=== PATIENT | female | born 1955 | race Caucasian/White ===

== ENCOUNTER → 2021-02-02 07:00 | Outpatient (CLI) | payer MEDICARE, OTHER, SELFPAY ==
[2021-02-02 09:06] LABS: Add Manual Diff / Slide Review NO; Basophils Absolute Auto 0 /uL (0-100); Basophils Percent Auto 0.5 % (0-2); Eosinophils Absolute Auto 100 /uL (0-450); Eosinophils Percent Auto 1.1 % (2-4); Hematocrit 38.8 % (36-46); Hemoglobin 12.9 g/dL (12.0-16.0); Lymphocytes Absolute Auto 1500 /uL (1100-4500); Lymphocytes Percent Auto 22.7 % (25-40); Mean Corpuscular HGB Conc 33.2 % (30-36); Mean Corpuscular Hemoglobin 29.9 PG (26-34); Mean Corpuscular Volume 90.2 fL (80-100); Monocytes Absolute Auto 500 /uL (0-900); Monocytes Percent Auto 8.1 % (3-14); Neutrophils Absolute Auto 4300 /uL (1500-7000); Neutrophils Percent Auto 67.6 % (50-75); Platelet Count 230 X10^3/uL (150-400); White Blood Cell Count 6.4 X10^3/uL (4.5-11.0)
[2021-02-02 09:48] LABS: Alanine Aminotransferase 19 IU/L (<35); Albumin 4.2 g/dL (3.5-5.0); Albumin Globulin Ratio 1.7 (1.0-2.8); Alkaline Phosphatase 72 U/L (38-126); Aspartate Aminotransferase 25 IU/L (14-36); Bilirubin Total 0.3 mg/dL (0.2-1.3); Blood Urea Nitrogen 13 mg/dL (7-17); Calcium 9.1 mg/dL (8.4-10.2); Carbon Dioxide 31 mmol/L (22-32); Chloride 102 mmol/L (98-107); Cholesterol 213 mg/dL (140-199); Estimated Glomerular Filt Rate > 60.0 mL/min (>60); Globulin 2.5 g/dL (1.7-4.1); Glucose 95 mg/dL (80-110); HDL Cholesterol 60 mg/dL (40-60); HEMOLYSIS < 15 (0-50); LDL Cholesterol Calculated 134 mg/dL (<100); Potassium 4.6 mmol/L (3.4-5.1); Sodium 140 mmol/L (137-145); Total Protein 6.7 g/dL (6.3-8.2); Triglycerides 95 mg/dL (35-150)
[2021-02-02 09:58] LABS: Vitamin D 25 Hydroxy (D3) 64.6 ng/mL (30.0-100.0)
== END ==
PROVIDERS: PCP Student in an Organized Health Care Education/Training Program; Referring Provider Student in an Organized Health Care Education/Training Program; Visit Provider Student in an Organized Health Care Education/Training Program
DX: E55.9 Vitamin D deficiency, unspecified (principal); Z79.899 Other long term (current) drug therapy; Z13.220 Encounter for screening for lipoid disorders
CPT/HCPCS: 36415; 80053; 80061; 82306; 85025

== ENCOUNTER → 2021-02-11 09:53 | Outpatient (CLI) | payer MEDICARE, OTHER, SELFPAY | PROVIDERS: PCP Student in an Organized Health Care Education/Training Program; Referring Provider Student in an Organized Health Care Education/Training Program; Visit Provider Student in an Organized Health Care Education/Training Program | DX: Z78.0 Asymptomatic menopausal state (principal); Z13.820 Encounter for screening for osteoporosis; M85.851 Other specified disorders of bone density and structure, right thigh | CPT/HCPCS: 77080 ==

== ENCOUNTER → 2021-03-21 08:39 | Outpatient (CLI) | payer MEDICARE, OTHER, SELFPAY ==
--- NOTE | 2021-03-21 08:41 | DI.MG.S_ITS ---
BILATERAL DIGITAL SCREENING MAMMOGRAM 3D/2D WITH CAD: 03/21/2021 CLINICAL: Routine screening. Comparison is made to exams dated: 10/03/2018 mammogram and 08/26/2018 mammogram - outside facility. The tissue of both breasts is predominantly fatty. Current study was also evaluated with a Computer Aided Detection (CAD) system. There are benign calcifications in the right breast. No significant masses, calcifications, or other findings are seen in either breast. There has been no significant interval change. IMPRESSION: BENIGN There is no mammographic evidence of malignancy. A 1 year screening mammogram is recommended. This exam was interpreted at Station ID: [id number]. NOTE: For mammograms, a report in lay terms will be sent to the patient. Approximately 15% of breast malignancies will not be visualized mammographically. In the management of a palpable breast mass, a negative mammogram must not discourage biopsy of a clinically suspicious lesion. Electronically Signed By: Kaleb Winston acr/rolf:03/21/2021 10:17:37 letter sent: Normal Exam ACR BI-RADS Category 2: Benign Finding(s) 3342F
== END ==
PROVIDERS: PCP Student in an Organized Health Care Education/Training Program; Referring Provider Student in an Organized Health Care Education/Training Program; Visit Provider Student in an Organized Health Care Education/Training Program
DX: Z12.31 Encounter for screening mammogram for malignant neoplasm of breast (principal)
CPT/HCPCS: 77063; 77067

== ENCOUNTER → 2021-04-26 09:40 | Outpatient (CLI) | payer MEDICARE, OTHER, SELFPAY ==
--- NOTE | 2021-04-26 | DI.MRI.S_ITS ---
PROCEDURE: MR LUMBAR SPINE WO CON INDICATIONS: Low back pain, unspecified TECHNIQUE: Noncontrast sagittal T1 spin echo and T2 fast echo, sagittal STIR, axial T1 and T2 fast spin echo through the lumbar spine. In cases with scoliosis, additional coronal T2 fast spin echo may be performed. COMPARISON: [facility] [place], CR, XR LUMBAR SPINE WITH OBLIQUES PLUS FLEXION EXTENSION, 04/14/2021, 11:38. FINDINGS: Image quality: Excellent. Alignment and Curvature: S-shaped scoliotic curvature is seen. Bone Marrow: Marrow is of normal overall signal. No acute vertebral body compression fractures. Spinal Cord: Conus medullaris terminates at the L1 level. Visualized cord demonstrates normal signal and size. Paraspinous Soft Tissues: No paravertebral masses. Age-appropriate lower thoracic spine degenerative changes are seen. T12-L1: No significant abnormality is seen. L1-L2: Normal appearance. L2-L3: Moderate loss of disc height is seen on the left. Loss of disc signal is seen. Mild to moderate disc bulge is seen, which is eccentric to the left. There is a superimposed central disc protrusion. There is moderate left-sided and no significant right-sided neural foraminal narrowing. Moderate central canal narrowing is seen. L3-L4: Dykr-uu-lamsuugf loss of disc height and disc signal can be seen. Mild to moderate disc bulge is seen, with a central disc protrusion. There is moderate to severe right-sided and at least moderate left-sided neural foraminal narrowing. There is a degree of compression seen upon the exiting nerve roots. Moderate to severe central canal narrowing is seen. L4-L5: Moderate to severe loss of disc height and disc signal can be seen on the right side. Reactive marrow endplate changes are seen, which demonstrate mixed T1 weighted and T2-weighted signal, and are attributed to a combination of edema and fatty metaplasia (Modic type I and Modic type II changes). Moderate disc bulge is seen, which is eccentric to the right. There is a superimposed central disc protrusion. At least moderate facet hypertrophy is seen at this level. There is moderate to severe right-sided and at least moderate left-sided neural foraminal narrowing. There is a degree of compression seen upon the exiting right L4 nerve root. Moderate to severe central canal narrowing is seen, as on series 5, image 23. L5-S1: Hwel-ws-welavbjg loss of disc height and disc signal can be seen. Moderate generalized disc bulge is seen. There is a superimposed central disc protrusion. At least moderate facet hypertrophy is seen. There is at least moderate left-sided neural foraminal narrowing, with a mild degree of compression upon the exiting left L5 nerve root. Mild right-sided neural foraminal narrowing is seen. Mild to moderate central canal narrowing is seen. IMPRESSION: Multiple levels of relatively prominent lumbar spine degenerative change are seen, which are overall worst at L3-L4 and L4-L5. Several sites of significant neural foraminal narrowing can be seen, with associated exiting nerve root compression. Dictated by: Cristobal Casey M.D. on 04/26/2021 at 10:02 Approved by: Cristobal Casey M.D. on 04/26/2021 at 10:06
== END ==
PROVIDERS: PCP Student in an Organized Health Care Education/Training Program; Referring Provider Physical Medicine & Rehabilitation; Visit Provider Physical Medicine & Rehabilitation
DX: M54.50 Low back pain, unspecified (principal); M51.36 Other intervertebral disc degeneration, lumbar region; M48.061 Spinal stenosis, lumbar region without neurogenic claudication
CPT/HCPCS: 72148

== ENCOUNTER → 2021-08-03 08:09 | Outpatient (CLI) | payer MEDICARE, OTHER, SELFPAY ==
--- NOTE | 2021-08-03 08:13 | DI.RAD.S_ITS ---
PROCEDURE: XR NASAL BONES MIN 3V INDICATIONS: Nose pain TECHNIQUE: 3 views of the nasal bones acquired. COMPARISON: None. FINDINGS: Bones: No fractures or dislocations. Nasal septum is midline. Normal nasociliary nerve grooves are noted. Soft tissues: No suspicious soft tissue calcifications. IMPRESSION: No displaced nasal bone fractures. Dictated by: Samreen Esteves MD, PhD on 08/03/2021 at 10:29 Approved by: Samreen Esteves MD, PhD on 08/03/2021 at 10:30
--- NOTE | 2021-08-03 08:13 | DI.RAD.S_ITS ---
PROCEDURE: XR RIBS RT MIN 3V W CXR 1V INDICATIONS: fall TECHNIQUE: To views of the right ribs were acquired, along with a single view chest. COMPARISON: None. FINDINGS: Surgical changes and devices: None. Bones and chest wall: Mildly displaced anterior right 9th rib fracture. No suspicious bony lesions. Overlying soft tissues appear unremarkable. Lungs and pleura: No pleural effusions or pneumothorax. Streaky opacities noted in the lung bases which could represent parenchymal scarring or atelectasis. Mediastinum: Mediastinal contours appear normal. Heart size is normal. IMPRESSION: Mildly displaced anterior right 9th rib fracture. No acute cardiopulmonary disease process. Dictated by: Samreen Esteves MD, PhD on 08/03/2021 at 10:30 Approved by: Samreen Esteves MD, PhD on 08/03/2021 at 10:31
== END ==
PROVIDERS: PCP Student in an Organized Health Care Education/Training Program; Referring Provider Nurse Practitioner Family; Visit Provider Nurse Practitioner Family
DX: S09.92XA Unspecified injury of nose, initial encounter (principal); S22.31XA Fracture of one rib, right side, initial encounter for closed fracture; R07.81 Pleurodynia; X58.XXXA Exposure to other specified factors, initial encounter
CPT/HCPCS: 70160; 71101

== ENCOUNTER → 2022-03-22 11:25 | Outpatient (CLI) | payer MEDICARE, OTHER, SELFPAY ==
--- NOTE | 2022-03-22 11:27 | DI.MG.S_ITS ---
BILATERAL DIGITAL SCREENING MAMMOGRAM 3D/2D WITH CAD: 03/22/2022 CLINICAL: Routine screening. Comparison is made to exams dated: 03/21/2021 mammogram - [facility], 10/03/2018 mammogram, and 08/26/2018 mammogram - outside facility. Both breasts are almost entirely fatty (category a/<25% glandular tissue). Current study was also evaluated with a Computer Aided Detection (CAD) system. There are benign calcifications in both breasts. No significant masses, calcifications, or other findings are seen in either breast. There has been no significant interval change. IMPRESSION: BENIGN There is no mammographic evidence of malignancy. A 1 year screening mammogram is recommended. Based on the Tyrer Cuzick model (a risk assessment model) the patient's lifetime risk is 5.6% and her 10 year risk is 2.8%. According to the ACR, ACS, and NCCN guidelines, an annual breast MRI exam along with mammogram is recommended if the patient's lifetime risk is 20% or greater. This exam was interpreted at Station ID: [id number]. NOTE: For mammograms, a report in lay terms will be sent to the patient. Approximately 15% of breast malignancies will not be visualized mammographically. In the management of a palpable breast mass, a negative mammogram must not discourage biopsy of a clinically suspicious lesion. Electronically Signed By: Kaleb avalos/rolf:03/22/2022 15:05:48 letter sent: Normal Exam ACR BI-RADS Category 2: Benign Finding(s) 3342F
--- NOTE | 2022-03-22 11:27 | DI.CT.S_ITS ---
PROCEDURE: CT CHEST WO CON INDICATIONS: ROUTINE SCREEN;Personal history of nicotine depend TECHNIQUE: Noncontrast 5 mm thick sections acquired from the pulmonary apices to the posterior costophrenic angles. 1 mm lung window, 5 mm thick coronal and sagittal and 7 mm axial MIP reformats were then acquired. For radiation dose reduction, the following was used: automated exposure control, adjustment of mA and/or kV according to patient size. COMPARISON: None. FINDINGS: Image quality: Excellent. Lungs and pleura: No acute air space opacities. No pleural effusions or pneumothorax. Central and peripheral airways are patent and normal in caliber. Mediastinum: Heart size is normal. No pericardial effusion. No mediastinal adenopathy by size criteria. Thoracic aorta and central pulmonary arteries are normal in size. Scattered atheromatous calcifications are present within the aortic arch. Esophagus is normal in caliber. No hiatal hernia. Bones and chest wall: No suspicious bony lesions. No vertebral body compression fractures. No axillary or supraclavicular adenopathy by size criteria. Thyroid gland is unremarkable. Abdomen: Visualized upper abdominal solid organs and bowel loops appear normal in the absence of contrast. IMPRESSION: No acute airspace opacities. No suspicious pulmonary nodules or mass lesions. Lung rads 1: If clinically indicated, annual CT surveillance is recommended. Dictated by: Ethel Garcia M.D. on 03/22/2022 at 15:53 Approved by: Ethel Garcia M.D. on 03/22/2022 at 15:59
== END ==
PROVIDERS: PCP Student in an Organized Health Care Education/Training Program; Referring Provider Student in an Organized Health Care Education/Training Program; Visit Provider Student in an Organized Health Care Education/Training Program
DX: Z12.31 Encounter for screening mammogram for malignant neoplasm of breast (principal); Z87.891 Personal history of nicotine dependence; Z13.83 Encounter for screening for respiratory disorder NEC
CPT/HCPCS: 71250; 77063; 77067

== ENCOUNTER → 2023-02-20 10:29 | Outpatient (CLI) | payer MEDICARE, OTHER, SELFPAY ==
--- NOTE | 2023-02-20 | DI.RAD.S_ITS ---
PROCEDURE: XR FOOT RT MIN 3V INDICATIONS: Other hammer toe(s) (acquired), unspecified foot TECHNIQUE: 3 views of the foot were acquired. COMPARISON: [facility], , FOOT 3V RIGHT, 01/24/2010, 14:02. FINDINGS: Bones: No fractures or dislocations. No suspicious bony lesions. Mild metatarsus adductus and hallux valgus. Hammertoe deformity. Mild degenerative joint disease in ankle and foot. Osteopenia. Soft tissues: No tibiotalar joint effusion. Achilles tendon appears normal. IMPRESSION: 1. No acute osseous abnormalities. 2. Mild degenerative joint disease. Dictated by: Faizan Booker M.D. on 02/20/2023 at 13:29 Approved by: Faizan Booker M.D. on 02/20/2023 at 13:31
== END ==
PROVIDERS: PCP Registered Nurse; Referring Provider Podiatrist Foot & Ankle Surgery; Visit Provider Podiatrist Foot & Ankle Surgery
DX: M20.41 Other hammer toe(s) (acquired), right foot (principal); M19.071 Primary osteoarthritis, right ankle and foot; M20.11 Hallux valgus (acquired), right foot
CPT/HCPCS: 73630

== ENCOUNTER → 2023-03-23 11:24 | Outpatient (CLI) | payer MEDICARE, OTHER, SELFPAY ==
--- NOTE | 2023-03-23 | DI.RAD.S_ITS ---
Bone Density Report Name: VIVIENNE CARMONA Age: 67 Sex: Female Ethnicity: White Date of : 1955 Indication: osteopenia; Referring Provider: EMILY KOVACS Study: Bone densitometry was performed. Exam Date: March 23, 2023 Accession number: [id number] Bone Density: Region BMD T-score Z-score Classification AP Spine(L1-L4) 0.950 -0.9 1.0 Normal Femoral Neck (Left) 0.721 -1.2 0.5 Osteopenia Total Hip (Left) 0.773 -1.4 0.0 Osteopenia Femoral Neck (Right) 0.713 -1.2 0.4 Osteopenia Total Hip (Right) 0.713 -1.9 -0.5 Osteopenia Total Hip Mean 0.743 -1.7 -0.3 Osteopenia World Health Organization criteria for BMD impression classify patients as: Normal (T-score at or above -1.0), Osteopenia (T-score between -1.0 and -2.5), or Osteoporosis (T-score at or below -2.5). 10-year Fracture Risk(1): Major Osteoporotic Fracture 8.7% Hip Fracture 0.8% Reported Risk Factors: [place] (), Neck BMD=0.713, BMI=28.2 (1) FRAX(R) Version 3.08. Fracture probability calculated for an untreated patient. Fracture probability may be lower if the patient has received treatment. Previous Exams: -- Region Exam Age BMD T-score BMD Change BMD Change Date g/cm2 vs Baseline vs Previous -- AP Spine (L1-L4) 03/23/2023 67 0.950 -0.9 -0.063 (-6.2%)# -0.063 (-6.2%)# 02/11/2021 65 1.013 -0.3 Total Hip(Left) 03/23/2023 67 0.773 -1.4 0.025 (3.4%)# 0.025 (3.4%)# 02/11/2021 65 0.748 -1.6 Total Hip(Right) 03/23/2023 67 0.713 -1.9 0.018 (2.6%)# 0.018 (2.6%)# 02/11/2021 65 0.695 -2.0 -- *Denotes significance at 95% confidence level, LSC for AP Spine = 0.022 g/cm2, LSC for Total Hip = 0.027 g/cm2 # Denotes dissimilar scan types or analysis methods Impression: The patient has low bone mass, based on the Right Total Hip T-score. The patient has an estimated ten-year risk of hip fracture of 0.8% and an estimated ten-year risk of major fracture of 8.7%, based on the WHO FRAX algorithm. No significant bone loss was observed. Discussion: BONE DENSITY IS LOW AT ONE OR MORE SKELETAL SITES. This patient's lowest T-score is low at one or more skeletal sites. It meets the World Health Organization's (WHO) criteria for low bone mass (T-score between -1.0 and -2.5). The patient's 10-year risk of fracture as calculated by FRAX is less than the threshold where pharmacological therapy is recommended by the National Osteoporosis Foundation (NOF). However, all treatment decisions require clinical judgment and consideration of individual patient factors, including patient preferences, comorbidities, previous drug use, risk factors not captured in the FRAX model (e.g., frailty, falls, vitamin D deficiency, increased bone turnover, interval significant decline in bone density) and possible under or overestimation of fracture risk by FRAX. The patient should follow a healthful lifestyle (good nutrition with adequate calcium and vitamin D, and appropriate weight-bearing exercise). Follow-Up: Consider repeating this study in 2 to 3 years to reassess this patient's status, or sooner if there is some new clinical indication. Reported by: KO BUNCH M.D. on 03/23/2023 12:48:00 PM.
--- NOTE | 2023-03-23 | DI.MG.S_ITS ---
BILATERAL DIGITAL SCREENING MAMMOGRAM 3D/2D WITH CAD: 03/23/2023 CLINICAL: Routine screening. Comparison is made to exams dated: 03/22/2022 mammogram, 03/21/2021 mammogram - [facility], and 10/03/2018 mammogram - outside facility. Both breasts are heterogeneously dense, which may obscure small masses (category c / 51-75% glandular tissue). Current study was also evaluated with a Computer Aided Detection (CAD) system. No significant masses, calcifications, or other findings are seen in either breast. There has been no significant interval change. IMPRESSION: NEGATIVE There is no mammographic evidence of malignancy. A 1 year screening mammogram is recommended. Based on the Tyrer Cuzick model (a risk assessment model) the patient's lifetime risk is 12.0% and her 10 year risk is 6.4%. According to the ACR, ACS, and NCCN guidelines, an annual breast MRI exam along with mammogram is recommended if the patient's lifetime risk is 20% or greater. This exam was interpreted at Station ID: [id number]. NOTE: For mammograms, a report in lay terms will be sent to the patient. Approximately 15% of breast malignancies will not be visualized mammographically. In the management of a palpable breast mass, a negative mammogram must not discourage biopsy of a clinically suspicious lesion. Electronically Signed By: Ayana Julian M.D., PH.D jie/rolf:03/25/2023 14:50:51 letter sent: Normal Exam ACR BI-RADS Category 1: Negative 3341F
== END ==
PROVIDERS: PCP Registered Nurse; Referring Provider Registered Nurse; Visit Provider Registered Nurse
DX: Z12.31 Encounter for screening mammogram for malignant neoplasm of breast (principal); M81.0 Age-related osteoporosis without current pathological fracture
CPT/HCPCS: 77063; 77067; 77080

== ENCOUNTER → 2024-02-05 15:15 | Outpatient (CLI) | payer MEDICARE, OTHER, SELFPAY ==
--- NOTE | 2024-02-05 15:16 | DI.CT.S_ITS ---
PROCEDURE: CT LUNG LOW DOSE SCREENING INDICATIONS: scrn malig lucina lung in former smoker TECHNIQUE: Noncontrast 2.0-2.5 mm thick sections acquired from the pulmonary apices to the posterior costophrenic angles. 7 mm thick axial MIP, and 5 mm coronal and sagittal reformats were then acquired. For radiation dose reduction, the following was used: automated exposure control, adjustment of mA and/or kV according to patient size. COMPARISON: [facility], CT, CT CHEST WO [facility], 03/22/2022, 12:05. FINDINGS: Image quality: Diagnostic, allowing for low radiation dose Lungs and pleura: Scattered scarring and atelectasis. No dense airspace disease. No pleural effusions. No suspicious pulmonary nodules. Mediastinum, heart, and esophagus: Similar focal pericardial thickening versus fluid anteriorly. Normal heart size. Coronary calcifications. No pathologic lymph nodes by size criteria. Chest wall and thyroid: Unremarkable Upper abdomen: No gross abnormality on these low-dose noncontrast images. Bones: There are degenerative changes. IMPRESSION: No suspicious pulmonary nodules. LUNG-RADS 1; continued annual screening, if eligible. Other findings above. Dictated by: Eric Rubin M.D. on 02/05/2024 at 18:14 Approved by: Eric Rubin M.D. on 02/05/2024 at 18:17
== END ==
PROVIDERS: PCP Registered Nurse; Referring Provider Registered Nurse; Visit Provider Registered Nurse
DX: Z87.891 Personal history of nicotine dependence (principal); Z12.2 Encounter for screening for malignant neoplasm of respiratory organs; I25.10 Atherosclerotic heart disease of native coronary artery without angina pectoris
CPT/HCPCS: 71271

== ENCOUNTER → 2024-03-26 07:30 | Outpatient (CLI) | payer MEDICARE, OTHER, SELFPAY ==
--- NOTE | 2024-03-26 07:34 | DI.MG.S_ITS ---
BILATERAL DIGITAL SCREENING MAMMOGRAM 3D/2D WITH CAD: 03/26/2024 CLINICAL: Routine screening. Comparison is made to exams dated: 03/23/2023 mammogram, 03/22/2022 mammogram, 03/21/2021 mammogram - [facility], and 10/03/2018 mammogram - outside facility. The breasts are heterogeneously dense, which may obscure small masses (category c / 51-75% glandular tissue). Current study was also evaluated with a Computer Aided Detection (CAD) system. No significant masses, calcifications, or other findings are seen in either breast. There has been no significant interval change. IMPRESSION: NEGATIVE There is no mammographic evidence of malignancy. A 1 year screening mammogram is recommended. Based on the Tyrer Cuzick model (a risk assessment model) the patient's lifetime risk is 11.4% and her 10 year risk is 6.4%. According to the ACR, ACS, and NCCN guidelines, an annual breast MRI exam along with mammogram is recommended if the patient's lifetime risk is 20% or greater. This exam was interpreted at Station ID: [id number]. NOTE: For mammograms, a report in lay terms will be sent to the patient. Approximately 15% of breast malignancies will not be visualized mammographically. In the management of a palpable breast mass, a negative mammogram must not discourage biopsy of a clinically suspicious lesion. Electronically Signed By: Ayana Julian M.D., Ph.D. jie/rolf:03/31/2024 05:02:32 letter sent: Normal Exam ACR BI-RADS Category 1: Negative
== END ==
PROVIDERS: PCP Registered Nurse; Referring Provider Registered Nurse; Visit Provider Registered Nurse
DX: Z12.31 Encounter for screening mammogram for malignant neoplasm of breast (principal); R92.333 Mammographic heterogeneous density, bilateral breasts
CPT/HCPCS: 77063; 77067

== ENCOUNTER 2024-10-23 10:23 | Emergency (ER) | payer MEDICARE, OTHER, SELFPAY ==
[2024-10-23 10:30] VITALS: BP 157/72; PULSE 62; RESP 14; TEMP 36.4; O2SAT 95; BMI 27.9
--- NOTE | 2024-10-23 10:33 | DI.RAD.S_ITS ---
PROCEDURE: XR WRIST LT MIN 3V INDICATIONS: fall TECHNIQUE: 3 views of the wrist were acquired. COMPARISON: None. FINDINGS: Bones: No dislocations. No suspicious bony lesions. There is a comminuted intra-articular dorsally angulated distal radius fracture and a fracture through the middle 3rd of the ulnar-styloid process. These fractures appear acute. No additional carpal trauma is found. Soft tissues: No suspicious soft tissue calcifications. IMPRESSION: Colles' fracture, intra-articular with dorsal angulation distal radius. Ulnar- styloid process fracture. Significant impaction and dorsal angulation is associated at the distal radius fracture planes. Dictated by: Elliot Anglin M.D. on 10/23/2024 at 11:35 Approved by: Elliot Anglin M.D. on 10/23/2024 at 11:37
[2024-10-23] MEDS: IBUPROFEN 400 MG TABLET 800 MG PO (10:35)
--- NOTE | 2024-10-23 11:59 | ED.FALL ---
HPI - Fall <Anni Rivera PA-C - Last Filed: 10/23/24 18:52> General Chief Complaint: Fall Stated Complaint: tripped and fell, Possible broken Left wrist Time Seen by Provider: 10/23/24 11:59 Source: patient Mode of arrival: Ambulatory History of Present Illness HPI Narrative: Ms. Joyner is a very pleasant 60-year-old female with a past medical history of depression, chronic right footdrop who presents to the emergency department for left wrist pain after a fall that occurred prior to arrival. The patient was walking outside carrying food when she tripped and fell forward catching herself on an outstretched left hand. She now has deformity and pain of the left wrist. She denies any numbness or tingling but is unable to flex or extend the wrist. No open wounds. She did not hit her head or sustain any other injuries. Related Data Home Medications ?Medication ?Instructions ?Recorded ?Confirmed bupropion HCl 300 mg 24 hr tablet, 300 mg PO QAM 02/01/21 10/29/24 extended release (Wellbutrin XL) escitalopram oxalate 5 mg tablet 5 mg PO DAILY 02/01/21 10/29/24 (Lexapro) modafinil 200 mg tablet 200 mg PO DAILY 02/01/21 10/29/24 trazodone 100 mg tablet 200 mg PO BEDTIME PRN insomnia 02/01/21 10/29/24 aripiprazole 5 mg tablet 5 mg PO DAILY 01/31/22 10/29/24 Previous Rx's ?Medication ?Instructions ?Recorded acetaminophen 500 mg tablet 1,000 mg (2 x 500 mg) PO Q8H PRN 10/23/24 pain #120 tabs hydrocodone 5 mg-acetaminophen 325 1 tab PO Q4-6H PRN pain #12 tabs 10/23/24 mg tablet ondansetron 4 mg disintegrating 4 mg PO Q8H PRN nausea and 10/23/24 tablet vomiting #14 tabs oxycodone 5 mg capsule 5 mg PO Q4H PRN pain #25 caps 10/23/24 docusate sodium 100 mg capsule 100 mg PO BID #20 caps 10/30/24 Allergies Allergy/AdvReac Type Severity Reaction Status Date / Time aspirin AdvReac Mild upset Verified 10/29/24 09:46 stomach Review of Systems <Anni Rivera PA-C - Last Filed: 10/23/24 18:52> Review of Systems ROS Unobtainable: All systems reviewed & are unremarkable except as noted in HPI and below Patient History <Anni Rivera PA-C - Last Filed: 10/23/24 18:52> Medical History Former smoker Moderate mixed hyperlipidemia not requiring statin therapy Depression (~2000) Surgical History Anesthesia History of surgery Family History Father History of heart disease Mother Cancer Grandfather History of heart disease Grandmother History of heart disease Grandfather History of heart disease Grandmother History of heart disease Social History household members: none Smoking Status: Former smoker alcohol intake: former Smoking Status: Former smoker Exam <Anni Rivera PA-C - Last Filed: 10/23/24 18:52> Narrative Exam Narrative: GENERAL: 68 year old patient appears stated age. Well-developed patient, in no acute distress. HEAD: Atraumatic. Normocephalic. NECK: Trachea midline. Cervical ROM intact. CARDIOVASCULAR: Regular rate and rhythm. RESPIRATORY: ?Nonlabored respirations. ?Speaking in clear, full sentences. ?Clear to auscultation. Breath sounds equal bilaterally. No wheezes, rales, or rhonchi. ? EXTREMITIES: Left wrist with dorsal deformity, no open wounds. Strong radial pulse and sensation intact to light touch in the distribution of the median, radial, ulnar nerve. Brisk capillary refill in all the fingertips. Patient is still able to move all fingers. No tenderness to palpation of the right upper extremity, bilateral lower extremities. Patient does have chronic right footdrop. BACK: Nontender without deformity or crepitance. NEURO: AOx3. ?Clear speech. ?Moves all 4 extremities appropriately with the exception of left wrist. SKIN: No rash or erythema of visible areas Initial Vital Signs Initial Vital Signs: Vital Signs Temperature 97.6 F 10/23/24 10:30 Pulse Rate 62 10/23/24 10:30 Respiratory Rate 14 10/23/24 10:30 Blood Pressure 157/72 H 10/23/24 10:30 Pulse Oximetry 95 10/23/24 10:30 Oxygen Delivery Method Room Air 10/23/24 10:30 <Liam Connolly MD - Last Filed: 11/03/24 21:04> Initial Vital Signs Initial Vital Signs: Vital Signs Temperature 97.6 F 10/23/24 10:30 Pulse Rate 62 10/23/24 10:30 Respiratory Rate 14 10/23/24 10:30 Blood Pressure 157/72 H 10/23/24 10:30 Pulse Oximetry 95 10/23/24 10:30 Oxygen Delivery Method Room Air 10/23/24 10:30 Course <nAni Rivera PA-C - Last Filed: 10/23/24 18:52> Orders Ordered: Discontinued Medications Hydrocodone Bitart/Acetaminophen (Hydrocodone/Acet 5/325 Tablet) 1 tab PO NOW ONE Stop: 10/23/24 13:18 Last Admin: 10/23/24 13:26 Dose: 1 tab Documented By: COLUMBA Ibuprofen (Ibuprofen 400 Mg Tablet) 800 mg PO NOW ONE Stop: 10/23/24 10:34 Last Admin: 10/23/24 10:35 Dose: 800 mg Documented By: JOSEY Morphine Sulfate (Morphine 4 Mg/Ml Inj) 4 mg IV NOW ONE Stop: 10/23/24 12:09 Last Admin: 10/23/24 12:39 Dose: 4 mg Documented By: COLUMBA Ondansetron HCl (Ondansetron 4 Mg/2 Ml Inj) 4 mg IV NOW ONE Stop: 10/23/24 12:09 Last Admin: 10/23/24 12:39 Dose: 4 mg Documented By: COLUMBA Vital Signs Vital signs: Vital Signs - 8 hr 10/23/24 12:41 10/23/24 13:39 Pulse Rate 64 Respiratory Rate 19 16 Blood Pressure 185/83 H 150/76 H Pulse Oximetry 97 Oxygen Delivery Method Room Air <Liam Connolly MD - Last Filed: 11/03/24 21:04> Orders Ordered: Discontinued Medications Hydrocodone Bitart/Acetaminophen (Hydrocodone/Acet 5/325 Tablet) 1 tab PO NOW ONE Stop: 10/23/24 13:18 Last Admin: 10/23/24 13:26 Dose: 1 tab Documented By: KW Ibuprofen (Ibuprofen 400 Mg Tablet) 800 mg PO NOW ONE Stop: 10/23/24 10:34 Last Admin: 10/23/24 10:35 Dose: 800 mg Documented By: JOSEY Morphine Sulfate (Morphine 4 Mg/Ml Inj) 4 mg IV NOW ONE Stop: 10/23/24 12:09 Last Admin: 10/23/24 12:39 Dose: 4 mg Documented By: COLUMBA Ondansetron HCl (Ondansetron 4 Mg/2 Ml Inj) 4 mg IV NOW ONE Stop: 10/23/24 12:09 Last Admin: 10/23/24 12:39 Dose: 4 mg Documented By: COLUMBA Vital Signs Vital signs: Vital Signs - 8 hr 10/23/24 12:41 10/23/24 13:39 Pulse Rate 64 Respiratory Rate 19 16 Blood Pressure 185/83 H 150/76 H Pulse Oximetry 97 Oxygen Delivery Method Room Air MDM - Fall <Anni Rivera PA-C - Last Filed: 10/23/24 18:52> Medical Records Attestation: I reviewed the patient's medical records. Imaging Data Left Wrist XR: Radiologist's Impression: PROCEDURE: XR WRIST LT MIN 3V INDICATIONS: fall TECHNIQUE: 3 views of the wrist were acquired. COMPARISON: None. FINDINGS: Bones: No dislocations. No suspicious bony lesions. There is a comminuted intra-articular dorsally angulated distal radius fracture and a fracture through the middle 3rd of the ulnar-styloid process. These fractures appear acute. No additional carpal trauma is found. Soft tissues: No suspicious soft tissue calcifications. IMPRESSION: Colles' fracture, intra-articular with dorsal angulation distal radius. Ulnar-styloid process fracture. Significant impaction and dorsal angulation is associated at the distal radius fracture planes. Dictated by: Elliot Anglin M.D. on 10/23/2024 at 11:35 Approved by: Elliot Anglin M.D. on 10/23/2024 at 11:37 [facility] Narrative Medical decision making narrative: 60-year-old female with a past medical history of depression, chronic right footdrop who presents to the emergency department for left wrist pain after a fall that occurred prior to arrival. Differential diagnosis includes but is not limited to left wrist fracture, sprain, strain, dislocation, etc. On exam patient is in no acute distress, nontoxic appearing, vital signs appropriate. She had a mechanical ground level fall falling with left FOOSH. She has a deformity of the left wrist but is neurovascularly intact. No open wounds. X-ray reveals ?Colles' fracture, intra-articular with dorsal angulation distal radius. Ulnar-styloid process fracture. Significant impaction and dorsal angulation is associated at the distal radius fracture planes. Discussed case with on-call orthopedic surgeon, Dr. Peralta, who initially recommended finger trap reduction, however we do not have the supplies for this at this time, OR was checked as well. He therefore recommends proceeding with a sugar-tong splint and for the patient to follow up outpatient for surgery. We will treat patient with Zofran and morphine at this time, proceed with sugar-tong splint. Left arm sugar-tong splint was applied by nursing staff. Patient is neurovascularly intact after the placement of the splint. Her pain is improved significantly. She was prescribed [place], narcotic wrist discussed. Also recommended ibuprofen, Tylenol, rice therapy. Informed that she needs to call Orthopedics for follow up early next week, likely surgery. Discussed strict ED return precautions. Patient verbalized understanding of all information and is agreeable with the plan, sisters are at bedside. She is stable for discharge home. Discharge Plan Departure Patient Disposition: Home Clinical Impression: Ground-level fall Colles' fracture of left radius Qualifiers: Encounter type: initial encounter Fracture type: closed Qualified Code(s): S52.532A - Colles' fracture of left radius, initial encounter for closed fracture Fracture of ulnar styloid Qualifiers: Encounter type: initial encounter Fracture type: closed Fracture alignment: nondisplaced Laterality: left Qualified Code(s): S52.615A - Nondisplaced fracture of left ulna styloid process, initial encounter for closed fracture Instructions: DI for Wrist Fracture Activity Restrictions/Additional Instructions: Dear Ms. Joyner, Thank you for coming to the emergency department. Today you were evaluated for a left wrist injury, and your x-ray revealed that you broke both the radius and ulna in your wrist. You will need to follow up with [facility] for further treatment of this fracture. Please call [phone] to schedule an appointment. Please use RICE therapy for your pain in addition to ibuprofen/acetaminophen. Rest the painful area. Ice the area of pain/swelling for at least 15 minutes, 4x a day. Compress the area of swelling using a brace, wrap, or splint if applied. Elevate the painful or swollen extremity by supporting it above the level of the heart with pillows when sitting or laying. Please take Ibuprofen (Motrin/Advil) or Acetaminophen (Tylenol) for pain. These are available over the counter. You may take Ibuprofen 600 mg every 8 hours with food for pain. You may also take Acetaminophen 650 mg every 4-6 hours for pain. Do not exceed 3000 mg of Tylenol a day as this can cause liver damage. Do not drink alcohol with either of these medications. You have been prescribed a short course of narcotic medications. These are potentially dangerous and addictive medications that should be used carefully. While on these medications you cannot drive or operate heavy machinery. Additionally, you cannot sign legal documents or perform any duties such as this. 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 Please understand that we cannot provide further refills of narcotics or controlled substances through the ED and your pain management will need to be through your Primary Care Provider Please follow up with your primary care doctor within the next 2-3 days for ER follow-up. (If you do not have a PCP you can call [phone]. ?to schedule an appointment with an [facility] Primary Care Provider) IF YOU DEVELOP ANY NEW OR WORSENING SYMPTOMS, RETURN TO THE ER! Please read the attached instructions, they highlight more specific treatments and interventions for you at home. Thank you for letting me participate in your care, Anni Rivera PA-C Prescriptions: New hydrocodone-acetaminophen 5-325 mg tablet 1 tab PO Q4-6H PRN (Reason: pain) Qty: 12 0RF No Action docusate sodium 100 mg capsule 100 mg PO BID Qty: 20 0RF aripiprazole 5 mg tablet 5 mg PO DAILY Patient Comments: TAKE ONE TABLET BY MOUTH ONE TIME DAILY modafinil 200 mg tablet 200 mg PO DAILY trazodone 100 mg tablet 200 mg PO BEDTIME PRN (Reason: insomnia) escitalopram oxalate [Lexapro] 5 mg tablet 5 mg PO DAILY bupropion HCl [Wellbutrin XL] 300 mg tablet extended release 24 hr 300 mg PO QAM acetaminophen 500 mg tablet 1,000 mg PO Q8H PRN (Reason: pain) Qty: 120 0RF oxycodone 5 mg capsule 5 mg PO Q4H PRN (Reason: pain) Qty: 25 0RF Patient Comments: post op RX but started pre op due to pain ondansetron 4 mg tablet,disintegrating 4 mg PO Q8H PRN (Reason: nausea and vomiting) Qty: 14 0RF Patient Comments: post op RX Referrals: Miguel A Peralta MD [Physician, Orthopedic Surgery] Referral Note: Left wrist fracture Radha Cha ARNP [Primary Care Provider, Family Practice] Stand Alone Forms: Patient Portal/API ED Sign-out <Liam Connolly MD - Last Filed: 11/03/24 21:04> [facility] Attestation: I was immediately available in the department for consultation. ?This documentation has been reviewed and I agree with assessment and plan. Supervised by Liam Connolly MD
[2024-10-23] MEDS: MORPHINE 4 MG/ML INJ IV (12:39)
[2024-10-23] MEDS: ONDANSETRON 4 MG/2 ML INJ IV (12:39)
[2024-10-23 12:41] VITALS: BP 185/83; PULSE 64; RESP 19; O2SAT 97
[2024-10-23] MEDS: HYDROCODONE/ACET 5/325 TABLET 1 TAB PO (13:26)
[2024-10-23 13:39] VITALS: BP 150/76; RESP 16
== END 2024-10-23 13:40 | disposition home or self-care (01) ==
PROVIDERS: Emergency Provider Physician Assistant; PCP Registered Nurse
DX: S52.615A Nondisplaced fracture of left ulna styloid process, initial encounter for closed fracture (principal); S52.532A Colles' fracture of left radius, initial encounter for closed fracture; W01.0XXA Fall on same level from slipping, tripping and stumbling without subsequent striking against object, initial encounter
CPT/HCPCS: 29125; 73110; 96374; 96375; 99284; J2270; J2405

== ENCOUNTER → 2024-10-24 07:00 | Outpatient (CLI) | payer MEDICARE, OTHER, SELFPAY ==
--- NOTE | 2024-10-24 07:05 | DI.CT.S_ITS ---
PROCEDURE: CT WRIST LEFT WITHOUT CON INDICATIONS: L wrist fracture TECHNIQUE: Noncontrast 1 mm axial sections acquired through the carpal bones, with coronal and sagittal reformats. COMPARISON: [facility], CR, XR WRIST LT MIN 3V, 10/23/2024, 10:29. FINDINGS: Image quality: Excellent. Bones: There is a comminuted impacted distal radius fracture which involves the articular surface with displacement. There is also an ulnar styloid avulsion. There is sclerosis of a portion of the proximal pole of the scaphoid consistent with a vascular necrosis, consistent with a chronic finding. Reference coronal image 79 of series 4 and 78 of series 4. Soft tissues: Edema related to fractures. IMPRESSION: 1. Markedly comminuted impacted distal radius fracture, with displacement extending to the articular surface with associated ulnar styloid avulsion 2. 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 Dictated by: Elmo Chavez M.D. on 10/24/2024 at 8:23 Approved by: Elmo Chavez M.D. on 10/24/2024 at 8:29
== END ==
PROVIDERS: PCP Registered Nurse; Referring Provider Orthopaedic Surgery; Visit Provider Orthopaedic Surgery
DX: S52.532A Colles' fracture of left radius, initial encounter for closed fracture (principal); S52.615A Nondisplaced fracture of left ulna styloid process, initial encounter for closed fracture; M87.9 Osteonecrosis, unspecified; X58.XXXA Exposure to other specified factors, initial encounter
CPT/HCPCS: 73200

== ENCOUNTER 2024-10-29 09:00 | Day surgery (SDC) | payer MEDICARE, OTHER, SELFPAY ==
[2024-10-24 10:46] VITALS: BMI 27.9
[2024-10-29] VITALS (9 sets, daily range): BP systolic 144–168; BP diastolic 62–75; PULSE 57–63; RESP 16–36; TEMP 35.8–36.6; O2SAT 93–98; BMI 27.9
--- NOTE | 2024-10-29 | DI.RAD.S_ITS ---
PROCEDURE: XR WRIST LT 2V INDICATIONS: Post operative imaging TECHNIQUE: 2 views of the wrist were acquired. COMPARISON: [facility], CR, XR WRIST LT MIN 3V, 10/23/2024, 10:29. [facility], CT, CT WRIST LEFT WITHOUT CON, 10/24/2024, 7:41. FINDINGS: Bones: There is plate and screw fixation of the distal radius, without postoperative hardware abnormality. There is improved anatomic alignment the distal radius fracture. Soft tissues: Soft tissue postoperative change can be seen, with irregularity and soft tissue gas. The overlying casting material limits evaluation of fine detail. IMPRESSION: Normal postoperative examination. Dictated by: Cristobal Casey M.D. on 10/29/2024 at 13:21 Approved by: Cristobal Casey M.D. on 10/29/2024 at 13:21
[2024-10-29] MEDS: ACETAMINOPHEN 325 MG TABLET 975 MG PO (09:54)
[2024-10-29] MEDS: LACTATED RINGERS 1,000 ML 42 ML IV (09:55)
--- NOTE | 2024-10-29 11:31 | PM.PREOP ---
Pre-operative Note COVID-19 Result date/Date tested (Pos, Neg/Pending): 10/29/24 Interval Note History & Physical reviewed/Exam performed by Physician: Yes Changes to H&P: No
[2024-10-29] MEDS: CEFAZOLIN 2 GM/100 ML PREMIX 100 ML IV (11:58)
--- NOTE | 2024-10-29 12:29 | SUR.OPER ---
Supine on padded OR bed, head on pillow, right arm secured on padded arm board at <90 degrees abduction, left arm on surgical arm table under control of surgeon, legs uncrossed, safety belt at thigh, tape over blanket over lower legs.
[2024-10-29] MEDS: BUPIVACAINE 0.25% (PF) VIAL 30 ML INJ (12:40)
--- NOTE | 2024-10-29 13:45 | P.OP_ITS ---
Operative Date/Time/Diagnoses Date of procedure: 10/29/24 Time of procedure: 13:45 Pre-op diagnosis: LEFT Distal Radius Fracture Post-op diagnosis: same Procedure & Clinicians Procedure: ORIF of the left distal radius fracture Same procedure(s) as scheduled: Yes Indications: Unstable, intra articular distal radius fracture Surgeon: Pito Grace Armature Winder Repair: Milagro Espinoza Click Yes if Unassisted: No Anesthesia Type: General Operative Notes Findings: Unstable intra-articular distal radius fracture Closure Type: primary Specimen(s): none sent Applied: other Estimated Blood Loss (mL): 10 Blood products transfused: none Tourniquet time (min): 78 Procedure in detail: Op Note Date of Procedure: October 29, 2024 Indication For Surgery: Left Displaced Distal Radius Fracture outside of tolerances. Pre-Op Diagnosis: Left Displaced Distal Radius Fracture Post-Op Diagnosis: KAREN Procedure(s): Open Reduction and Internal Fixation of the Closed Distal Radius Fracture Surgeon: Pito Grace MD Armature Winder Repair in OR: JAD Pereira Physician Armature Winder Repair was used throughout the entirety of the case. ?This operation could not have been safely performed (without compromising the technical results or length of the procedure) without the assistance of a skilled human services assistant. A human services assistant was medically necessary for room set up, patient positioning, draping, retraction, visualization, reduction, fixation and closure. ?They were essential ?for the success of the case. Anesthesia Type: General EBL: 10 cc Specimens Removed: None Complications: None Implants/Grafts: [employer]hew Volar Plate and Screws Drains: No lines, drains, or airways are recorded for this episode. Findings: Displaced distal radius fracture, reduced and fixed Narrative: The patient was met in the pre-operative hold area. Consent was verified. Operative extremity was signed. All questions were answered. They were brought to the operating room and surrendered to anesthesia. Once general anesthesia was obtained they were prepped and draped. A time out was performed. An esmarch was used to exsanguinate the limb and the tourniquet was elevated. A trans FCR approach was used. Once through the tendon sheath floor digital dissection was brought down to the pronator quadratus. This was freed from the bone. The volar fracture line was opened and blocks to reduction were removed. A reduction was performed with traction and flexion and ulnar deviation. Radial height, inclination, and tilt were restored. A k-wire was placed from the styloid into the metaphyses and the reduction was held nicely. An appropriate plate was selected and imaged. It's position was confirmed and a screw was placed in the oblong hole to hold it onto the bone. Imaging confirmed plate position and reduction. The distal screws were then drilled sequentially, measured, and locking screws 2mm shorter than what was measured were placed. Fluroro was used throughout this process. 2 additional plate screws were then placed proximally. Final images were taken at various angles to confirm all distal screws were not protruding from the dorsal distal radius. The wound was irrigated copiously. The fascia was closed with 2-0 vicryl and the skin with 4-0 nylon. 30cc of 0.5% marcaine without epinephrine was placed. A sterile dressing and splint was applied. Postoperative Plan: Volar resting splint until 2 weeks. Xrays. Sutures out Short Arm Velcro splint for weeks 2-6, xrays Advance weight bearing at 6 weeks if things are going well. Foot on the ground activities from 8-12 weeks. Pito Grace MD Complications: none Post-operative Condition: stable Disposition: PACU
[2024-10-29] MEDS: HYDROMORPHONE 1 MG INJ IV (14:02)
[2024-10-29] MEDS: KETOROLAC 30 MG/ML VIAL 15 MG IV (14:05)
[2024-10-29] MEDS: OXYCODONE IR 5 MG TABLET PO (14:06)
== END 2024-10-29 14:50 | disposition home or self-care (01) ==
PROVIDERS: PCP Registered Nurse; Referring Provider Orthopaedic Surgery; Visit Provider Orthopaedic Surgery
PROC: (CPT 25608; principal; 2024-10-29 10:45)
DX: S52.572A Other intraarticular fracture of lower end of left radius, initial encounter for closed fracture (principal); W10.9XXA Fall (on) (from) unspecified stairs and steps, initial encounter; Y93.F9 Activity, other caregiving
CPT/HCPCS: 25608; 73100; C1713; J0690; J1100; J1171; J1885; J2405; J2704; J3010

== ENCOUNTER → 2025-02-10 13:37 | Outpatient (CLI) | payer MEDICARE, OTHER, SELFPAY ==
--- NOTE | 2025-02-10 13:39 | DI.MRI.S_ITS ---
PROCEDURE: MR WRIST LT WO CON INDICATIONS: r/o EPL rupture TECHNIQUE: Noncontrast coronal proton density fast spin echo and T2 fast spin echo with fat saturation; coronal 3-D gradient echo, axial T1 spin echo and T2 fast spin echo with fat saturation, sagittal T1 spin echo through the wrist. COMPARISON: [facility], CR, XR WRIST LT MIN 3V, 02/03/2025, 14:48. FINDINGS: Image quality: Excellent. Bones and cartilage: Plate and screw fixation of a comminuted, distal radius fracture, with associated marrow edema. No significant bridging callus formation. Metallic artifact, limits evaluation. There is mild articular surface incongruity of the dorsal aspect of the distal radius. Small ulnar avulsion fracture with marrow edema, acute. In addition, there is diffuse marrow edema of the triquetrum, without fracture line, likely representing marrow contusion. There is mild marrow edema of the proximal scaphoid with mild T1 hypointensity, concerning for avascular necrosis (06:15). There is mild marrow edema of the dorsal lunate, nonspecific likely representing marrow contusion as well. Moderate degenerative change of the 1st carpometacarpal joint, with marrow edema. Small T2 hyperintense lesion in the 3rd metacarpal proximal diaphysis, nonspecific. Carpal ligaments: The scapholunate and lunotriquetral ligaments appear intact. In the absence of intra-articular contrast, the extrinsic carpal ligaments are not well identified. On sagittal images, the pisohamate ligament appears intact. Triangular fibrocartilage complex: Extensive full-thickness tear of the central disc. Tendons and soft tissues: The flexor, and the extensor tendons are unremarkable. The median nerve is unremarkable. No ganglion cyst. IMPRESSION: 1. Plate and screw fixation of a comminuted distal radius fracture, without significant bridging callus formation. Small ulnar avulsion fracture, with marrow edema, favoring acute. 2. Marrow contusion of the triquetrum. 3. Avascular necrosis of the proximal scaphoid. 4. Mild marrow contusion of the dorsal lunate. 5. Moderate degenerative change of the 1st carpal metacarpal joint. 6. Extensive full-thickness tear of the central disc of the triangular fibrocartilage. Dictated by: Dot Chan M.D. on 02/10/2025 at 17:32 Approved by: Dot Chan M.D. on 02/10/2025 at 17:45
--- NOTE | 2025-02-10 13:40 | DI.RAD.S_ITS ---
PROCEDURE: XR DEXA AXIAL SKELETON INDICATIONS: screenings COMPARISON: [facility], , XR DEXA AXIAL SKELETON, 03/23/2023, 12:04. [facility], CR, XR DEXA AXIAL SKELETON, 02/11/2021, 10:21. FINDINGS: Lumbar Spine: Bone mineral density 0.956 g/cm2, T score -0.8, no statistical change. Left Femoral Neck: Bone mineral density 0.737 g/cm2, T score -1. Left Hip: Bone mineral density 0.780 g/cm2, T score -1.3, no statistical change. Fracture Risk Calculation (when applicable): 10-year fracture risk of a major osteoporotic fracture 8.6 percent and of a hip fracture 0.8 percent. (T score greater or equal to -1.0 to: NORMAL) (T score from -1.1 to -2.4: OSTEOPENIA) (T score less than or equal to -2.5: OSTEOPOROSIS) IMPRESSION: Osteopenia. No statistical change . Follow-up guidelines as follows: Osteoporosis: Consider a repeat DEXA and Vertebral Fracture Assessment (VFA) exam in 2 years or sooner if medically necessary, to reassess this patient's status. Osteopenia: Consider a repeat DEXA in 2-3 years to reassess this patient's status, or if there is a new clinical indication. Normal: Consider a repeat DEXA in 5 years or sooner, or if there is a new clinical indication. All treatment decisions require clinical judgment and consideration of individual patient factors, including patient preferences, comorbidities, previous drug use, risk factors not captured in the FRAX model (e.g., frailty, falls, vitamin D deficiency, increased bone turnover, interval significant decline in bone density ) and possible under- or over-estimation of fracture risk by FRAX. In addition, the NOF Guide recommends that FDA-approved medical therapies be considered in postmenopausal women and men age >= 50 years with a: * Hip or vertebral (clinical or morphometric) fracture * T-score of <=-2.5 at the spine or hip * Ten-year fracture probability by FRAX of >= 3% for hip fracture or >=20% for major osteoporotic fracture. Dictated by: Jayson Carter M.D. on 02/11/2025 at 15:11 Approved by: Jayson Carter M.D. on 02/11/2025 at 15:12
--- NOTE | 2025-02-10 13:40 | DI.CT.S_ITS ---
PROCEDURE: CT LUNG LOW DOSE SCREENING INDICATIONS: screenings TECHNIQUE: Noncontrast 2.0-2.5 mm thick sections acquired from the pulmonary apices to the posterior costophrenic angles. 7 mm thick axial MIP, and 5 mm coronal and sagittal reformats were then acquired. For radiation dose reduction, the following was used: automated exposure control, adjustment of mA and/or kV according to patient size. COMPARISON: [facility], CT, CT LUNG LOW DOSE SCREENING, 02/05/2024, 15:22. FINDINGS: Image quality: Diagnostic. Lower Neck: No enlarged lymph nodes. Thyroid: No thyroid nodules which require sonographic follow up, per consensus guidelines. Axillae: No enlarged lymph nodes. Chest Wall: Unremarkable. Bones: No aggressive appearing bony lesions. Degenerative disc disease throughout thoracic spine. Lungs and Pleura: No pneumothorax or pleural effusions. No consolidation or suspicious nodules. Heart: Heart size is normal. Similar pericardial fluid anteriorly unchanged from prior study. Single-vessel coronary artery atherosclerotic calcifications. Thoracic Vessels: The aorta and pulmonary arteries demonstrate normal size. Mediastinum and Dina: No enlarged lymph nodes. Esophagus: No wall thickening. hiatal hernia. Upper Abdomen: Visualized upper abdomen solid organs and bowel loops appear normal. IMPRESSION: 1. No suspicious pulmonary nodules. LUNG-RADS 1; continued annual screening, if eligible. Clinically Significant Non-pulmonary Findings: As above, unchanged from prior study. Dictated by: Cal Coats M.D. on 02/11/2025 at 14:55 Approved by: Cal Coats M.D. on 02/11/2025 at 15:23
== END ==
LOC: MRI 13:38
PROVIDERS: Family Provider Registered Nurse; PCP Registered Nurse; Referring Provider Orthopaedic Surgery; Visit Provider Orthopaedic Surgery
DX: S52.532A Colles' fracture of left radius, initial encounter for closed fracture (principal); S52.252A Displaced comminuted fracture of shaft of ulna, left arm, initial encounter for closed fracture; S60.212A Contusion of left wrist, initial encounter; S63.592A Other specified sprain of left wrist, initial encounter; M87.242 Osteonecrosis due to previous trauma, left hand; Z12.2 Encounter for screening for malignant neoplasm of respiratory organs; Z87.891 Personal history of nicotine dependence; M51.34 Other intervertebral disc degeneration, thoracic region; I25.10 Atherosclerotic heart disease of native coronary artery without angina pectoris; K44.9 Diaphragmatic hernia without obstruction or gangrene; Z13.820 Encounter for screening for osteoporosis; M85.852 Other specified disorders of bone density and structure, left thigh; Z78.0 Asymptomatic menopausal state
CPT/HCPCS: 71271; 73221; 77080

== ENCOUNTER → 2025-03-12 13:29 | Outpatient (CLI) | payer MEDICARE, OTHER, SELFPAY | LOC: PHYS 13:32 | PROVIDERS: Family Provider Registered Nurse; PCP Registered Nurse; Referring Provider Orthopaedic Surgery; Visit Provider Orthopaedic Surgery | DX: R20.2 Paresthesia of skin (principal); S52.532D Colles' fracture of left radius, subsequent encounter for closed fracture with routine healing | CPT/HCPCS: 95886; 95909 ==